=== PATIENT | female | born 1995 | race Caucasian/White ===

== ENCOUNTER 2024-07-17 16:49 | Inpatient (IN) | payer BC, SELFPAY ==
[2024-07-17] VITALS (13 sets, daily range): BP systolic 112–142; BP diastolic 58–90; PULSE 43–85; TEMP 36.3
[2024-07-17 17:40] LABS: Hematocrit 40.3 % (36.0-48.0); Hemoglobin 13.6 g/dL (12.0-16.0); Mean Corpuscular HGB Conc 33.7 g/dL (29.9-35.2); Mean Corpuscular Hemoglobin 32.4 pg (26.7-34.0); Mean Platelet Volume 11.7 fL (9.5-13.5); Platelet Count 242 10^3/uL (150-450); Red Cell Distribution Width 12.8 % (11.0-15.0); White Blood Count 10.5 10^3/uL (4.0-11.0)
[2024-07-17] MEDS: DINOPROSTONE 10 MG VAG INSERT.ER VAGINAL (17:51)
[2024-07-17 18:03] LABS: Amphetamine Screen Urine NEGATIVE (NEGATIVE); Barbiturates Screen Urine NEGATIVE (NEGATIVE); Benzodiazepines Screen Urine NEGATIVE (NEGATIVE); Buprenorphine Screen Urine NEGATIVE (NEGATIVE); Cannabinoid Screen Urine NEGATIVE (NEGATIVE); Cocaine Screen Urine NEGATIVE (NEGATIVE); Methadone Screen Urine NEGATIVE (NEGATIVE); Methamphetamines Screen Urine NEGATIVE (NEGATIVE); Opiate Screen Urine NEGATIVE (NEGATIVE); Oxycodone Screen Urine NEGATIVE (NEGATIVE); Phencyclidine Screen Urine NEGATIVE (NEGATIVE); Tricyclic Antidepressant Urine NEGATIVE (NEGATIVE)
[2024-07-17] MEDS: ACETAMINOPHEN 500 MG TABLET 1000 MG PO (22:21)
[2024-07-17] MEDS: ZOLPIDEM TARTRATE 5 MG TABLET PO (22:22)
[2024-07-18] VITALS (50 sets, daily range): BP systolic 101–160; BP diastolic 51–97; PULSE 61–126; TEMP 36.3–37.2
[2024-07-18] MEDS: OXYTOCIN/0.9 % SODIUM CHLORIDE 10 UNITS/500 ML PLAST..BAG 6 UNIT IV (07:45)
[2024-07-18] MEDS: LACTATED RINGER'S SOLUTION 1,000 ML 125 ML IV ×2 (07:54→11:38)
--- NOTE | 2024-07-18 09:45 | PM.OBHP ---
OB - H&P: HPI History of Present Illness Chief complaint: INDUCTION : 1 Para: 0 Gestational age based on last menstrual period: 40.0 Narrative: elective History of Present Dating criteria: LMP confirmed by 1st trimester US care: good care Ultrasounds: normal 1st trimester US and normal mid trimester US Labs Blood type: O (+) positive Rubella: nonimmune RPR/VDLR: nonreactive GBS status: negative HBsAG: negative Review of Systems ROS Status of ROS: 10 or more systems reviewed and unremarkable except as noted in history and below PFSH PFSH Social History Highest level of school completed/degree received: high school graduate Little interest or pleasure in doing things: not at all Feeling down, depressed, or hopeless: not at all Meds Home Medications and Allergies Allergies Allergy/AdvReac Type Severity Reaction Status Date / Time No Known Drug Allergies Allergy Verified 07/17/24 16:56 Exam Constitutional Vital Signs, click to edit/add: Last Vital Signs Temp 97.3 F L 07/17/24 17:32 Pulse 81 07/18/24 07:53 BP 121/67 07/18/24 07:53 Documenting provider has reviewed patient's vital signs: yes Common normals: oriented x3 General appearance: cooperative and comfortable Orientation/consciousness: Yes awake, Yes oriented to person, Yes oriented to place and Yes oriented to time HENMT Common normals: normocephalic Neck & C-Spine Common normals: full ROM Lymph Lymphatic: no lymphadenopathy noted Respiratory Common normals: normal respiratory effort, no retractions, no use of accessory muscles and clear to auscultation bilaterally Effort & inspection: able to speak in complete sentences Cardio Common normals: regular rate and regular rhythm Rate: regular rate Rhythm: regular rhythm GI Common normals: Normal to inspection, nondistended, normoactive bowel sounds present Inspection: normal to inspection Auscultation: normoactive bowel sounds Palpation: soft Common normals: no CVA tenderness Back & Pelvis Common normals: no CVA tenderness Extremity Common normals: normal to inspection Neuro Common normals: oriented x3 Sensorium/orientation: awake, alert, oriented to person, oriented to place and oriented to time Psych Common normals: mental status grossly normal, thought process normal, cooperative, affect normal, speech normal, activity/motor behavior normal, denies hallucinations, denies homicidal ideation and denies suicidal ideation Appearance: grossly normal Attitude: calm Activity/motor behavior: appropriate eye contact Thought process: normal thought process Results Labs Labs: Short CBC 07/17/24 Range/Units 17:29 WBC 10.5 (4.0-11.0) 10^3/uL Hgb 13.6 (12.0-16.0) g/dL Hct 40.3 (36.0-48.0) % Plt Count 242 (150-450) 10^3/uL OB - A/P Assessment and Plan (1) Term : Plan Admit for routine labor and delivery
--- NOTE | 2024-07-18 10:08 | PM.EN ---
Event Note Event Note: to patients rooms, assessment obtained. SVE AROM performed with sterile [place] with return of moderate amount of clear, odorless fluid. heart tones stable before, during and after rupture of membranes. patient tolerated procedure well,.
[2024-07-18] MEDS: ROPIVACAINE HCL/PF 400 MG/200 ML PREMIX 6 MG EPIDURAL (10:18)
[2024-07-18] MEDS: LACTATED RINGER'S SOLUTION 1,000 ML 999 ML IV (10:18)
[2024-07-18] MEDS: LIDOCAINE HCL 1% 200 MG/20 ML MDV INJ (17:00)
[2024-07-18] MEDS: OXYTOCIN/0.9 % SODIUM CHLORIDE 20 UNITS/1,000 ML PLAST..BAG 999 UNIT IV (17:59)
--- NOTE | 2024-07-18 18:59 | PM.OBPRCVD ---
Procedure Intrapartal events: None Induction method: other (cervidil ) Delivery augmentation: rupture of membranes Delivery monitor: external FHT and external uterine Route of delivery: Episiotomy Description: none L&D Laceration Description: perineal - 1st degree and labial Delivery repair: Vicryl Estimated blood loss (mL): 300 Anesthesia type: Epidural Disposition: no change Infant presentation: vertex
[2024-07-18] MEDS: GLYCERIN/WITCH HAZEL PADS 1 PAD TOPICAL (19:20)
[2024-07-18] MEDS: IBUPROFEN 400 MG TABLET 800 MG PO (19:20)
[2024-07-18] MEDS: BENZOCAINE/MENTHOL 85 GRAM SPRAY BOTTLE 1 APPLIC TOPICAL (19:20)
[2024-07-18] MEDS: LIDOCAINE VISCOUS 2% 15 ML SOLUTION 5 ML TOPICAL (20:10)
[2024-07-19 00:11] VITALS: BP 121/80; PULSE 82
[2024-07-19] MEDS: ACETAMINOPHEN 325 MG TABLET 650 MG PO ×3 (00:21→22:34)
[2024-07-19] MEDS: IBUPROFEN 400 MG TABLET 800 MG PO ×3 (03:27→19:18)
[2024-07-19] MEDS: SIMETHICONE 80 MG TAB.CHEW PO (04:09)
[2024-07-19 06:20] LABS: Basophils Percent Auto 0.2 % (0.2-2.0); Eosinophils Absolute Auto 0.1 10^3/uL (0.0-0.7); Eosinophils Percent Auto 0.5 % (0.9-7.0); Hematocrit 30.7 % (36.0-48.0); Hemoglobin 10.3 g/dL (12.0-16.0); Immature Granulocytes Abs Auto 0.07 10^3/uL (0.00-0.03); Immature Granulocytes Pct Auto 0.4 % (0.0-0.5); Lymphocytes Absolute Auto 2.3 10^3/uL (1.2-3.8); Lymphocytes Percent Auto 12.6 % (20.5-60.0); Mean Corpuscular HGB Conc 33.6 g/dL (29.9-35.2); Mean Corpuscular Hemoglobin 32.4 pg (26.7-34.0); Mean Corpuscular Volume 96.5 fL (81.0-99.0); Mean Platelet Volume 11.7 fL (9.5-13.5); Monocytes Absolute Auto 1.2 10^3/uL (0.3-0.8); Monocytes Percent Auto 6.8 % (1.7-12.0); Neutrophils Absolute Auto 14.3 10^3/uL (1.4-6.5); Neutrophils Percent Auto 79.5 % (43.0-75.0); Platelet Count 194 10^3/uL (150-450); Red Blood Count 3.18 10^6/uL (4.20-5.40); Red Cell Distribution Width 13.2 % (11.0-15.0)
[2024-07-19 08:22] VITALS: BP 126/79; PULSE 71
[2024-07-19] MEDS: DOCUSATE SODIUM 100 MG CAPSULE PO ×2 (08:23→20:30)
[2024-07-19 08:37] VITALS: TEMP 36.9
--- NOTE | 2024-07-19 10:18 | PM.OBPN ---
OB - PN: Subj Subjective Patient comments: no complaints [place] status: doing well feeding status: exclusively Exam Constitutional Vital Signs, click to edit/add: Last Vital Signs Temp 98.4 F 07/19/24 08:37 Pulse 71 07/19/24 08:22 Resp 16 07/19/24 08:35 BP 126/79 07/19/24 08:22 O2 Del Method Room Air 07/19/24 08:35 Documenting provider has reviewed patient's vital signs: yes Common normals: no apparent distress and oriented x3 General appearance: cooperative and comfortable HENMT Common normals: normocephalic Eye Common normals: EOMs intact bilaterally Neck & C-Spine Common normals: full ROM General: normal visual inspection Lymph Lymphatic: no lymphadenopathy noted Respiratory Common normals: normal respiratory effort, no retractions, no use of accessory muscles, clear to auscultation bilaterally and percussion normal Effort & inspection: able to speak in complete sentences Auscultation: clear to auscultation bilaterally Cardio Common normals: regular rate and regular rhythm Rate: regular rate Rhythm: regular rhythm GI Common normals: Normal to inspection, nondistended, normoactive bowel sounds present Inspection: normal to inspection Auscultation: normoactive bowel sounds Palpation: soft Common normals: no CVA tenderness Back & Pelvis Common normals: no CVA tenderness Extremity Common normals: normal to inspection Neuro Common normals: oriented x3 Sensorium/orientation: awake, alert, oriented to person, oriented to place and oriented to time Psych Appearance: grossly normal Attitude: calm Results Labs Labs: Short CBC 07/19/24 Range/Units 06:02 WBC 18.0 H (4.0-11.0) 10^3/uL Hgb 10.3 L (12.0-16.0) g/dL Hct 30.7 L (36.0-48.0) % Plt Count 194 (150-450) 10^3/uL OB - PN: A/P Assessment and Plan (1) Term : Plan - Vaginal Delivery day: 1 Plan: routine care Time Spent with Patient Time: Total time spent is greater than 50% in coordination of care (as documented) at patient's floor/unit and/or counseling patient: Total time spent with greater than 50% in coordination of care (as documented) at patient's floor/unit and/or counseling patient: less than 15 minutes
[2024-07-19 16:39] VITALS: BP 114/65; PULSE 85; TEMP 36.4
[2024-07-19] MEDS: GLYCERIN/WITCH HAZEL PADS 1 PAD TOPICAL (20:29)
[2024-07-19 23:05] VITALS: BP 117/71; PULSE 72
[2024-07-19 23:06] VITALS: BP 117/71; PULSE 72; TEMP 36.7
[2024-07-20] MEDS: IBUPROFEN 400 MG TABLET 800 MG PO ×2 (03:13→13:19)
[2024-07-20 08:26] VITALS: BP 120/83; PULSE 64; TEMP 36.3
--- NOTE | 2024-07-20 12:04 | P.OBPN_ITS ---
OB - PN: Subj Subjective Patient comments: no complaints [place] status: doing well [place] feeding status: exclusively Exam Constitutional Vital Signs, click to edit/add: Last Vital Signs Temp 97.4 F L 07/20/24 08:26 Pulse 64 07/20/24 08:26 Resp 16 07/20/24 08:26 BP 120/83 07/20/24 08:26 O2 Del Method Room Air 07/20/24 08:26 Common normals: no apparent distress General appearance: cooperative Orientation/consciousness: Yes awake, Yes oriented to person, Yes oriented to place and Yes oriented to time HENMT Common normals: normocephalic Eye Common normals: EOMs intact bilaterally General eye: normal appearance of both eyes Neck & C-Spine Common normals: full ROM General: normal visual inspection Lymph Lymphatic: no lymphadenopathy noted Respiratory Common normals: normal respiratory effort Effort & inspection: able to speak in complete sentences Auscultation: clear to auscultation bilaterally Cardio Common normals: regular rate and regular rhythm Rate: regular rate Rhythm: regular rhythm GI Common normals: Normal to inspection, nondistended, normoactive bowel sounds present Palpation: soft Common normals: no CVA tenderness Back & Pelvis Common normals: no CVA tenderness Extremity Common normals: normal to inspection Neuro Common normals: oriented x3 Sensorium/orientation: awake, alert, oriented to person, oriented to place and oriented to time Psych Common normals: mental status grossly normal, thought process normal, cooperative, affect normal, speech normal, activity/motor behavior normal, denies hallucinations, denies homicidal ideation and denies suicidal ideation Attitude: calm OB - PN: A/P Assessment and Plan (1) Term : Plan - Vaginal Delivery day: 2 Plan: discharge home Comment: telemed visit w[facility] in 2 weeks and then in 4 weeks for a 6 week post appointment Time Spent with Patient Time: Total time spent is greater than 50% in coordination of care (as documented) at patient's floor/unit and/or counseling patient: Total time spent with greater than 50% in coordination of care (as documented) at patient's floor/unit and/or counseling patient: less than 15 minutes
[2024-07-20] MEDS: BENZOCAINE/MENTHOL 85 GRAM SPRAY BOTTLE 1 APPLIC TOPICAL (14:32)
[2024-07-20] MEDS: GLYCERIN/WITCH HAZEL PADS 1 PAD TOPICAL (14:32)
== END 2024-07-20 14:45 | disposition home or self-care (01) | DRG 807 ==
PROVIDERS: Admitting Provider Midwife; PCP Nurse Practitioner Family; Visit Provider Midwife
DX: O70.0 First degree perineal laceration during delivery (principal); Z37.0 Single live birth; Z3A.40 40 weeks gestation of pregnancy; Z87.891 Personal history of nicotine dependence
CPT/HCPCS: 36415; 59050; 59410; 80307; 85025; 85027; 86850; 86900; 86901; J2795

== ENCOUNTER 2024-07-23 08:36 | Outpatient (OUT) | payer BC, SELFPAY ==
[2024-07-23 14:58] VITALS: BP 140/86; PULSE 86; TEMP 36.9; O2SAT 97
--- NOTE | 2024-07-23 14:58 | PC.NURSE ---
Chiquita and 5 day old April arrive for follow up appointment. Chiquita states is feeling well, no complaints of discomfort given. States breasts are full and tender. Has been pumping and bottle feeding as baby started refusing to latch on day 3. Mom states I think my milk was coming in Is pumping 90ml each side every 2-3 hours. is taking 30 ml every 2-3 hours. Mom prefers to have infant return to direct breast feeding. Chiquita with VSS and assessment WNL. Reviewed questions and storing and thawing milk as needed. Baby April with VSS and assessment WNL. Large wet and bright yellow orange stool diaper changed. Weight increased from yesterday weight. Infant to breast per mom's request. rooting well, frustrated with latching. Discussed use of nipple shield and parents agree to try. Demo of proper placement and latching. Infant latches well, spends 20 min nursing well with audible swallows. Mom pleased with infant efforts. Baby burped and to second breast independently. Baby nurses 5 minutes and sleeps. Plan of feeding to include offer breast at each feed, with and without shield and using shield if needed. As infant shows progress with easy latching, will attempt to stop shield use. Parents both comfortable and confident in ability to continue breast feeding infant. Unable to commit to returning 07/26/2024 due to transportation issues. will check with family to see if someone available . Family leaves without further questions or concerns. Aware of MOMS group and to call as needed. Will call for return visit once transportation settled.
== END 2024-07-23 15:05 | disposition home or self-care (01) ==
LOC: FBCO 08:36
PROVIDERS: PCP Nurse Practitioner Family; Visit Provider Midwife
DX: Z31.89 Encounter for other procreative management (principal)